=== PATIENT | male | born 1990 | race Hispanic/Latino ===

== ENCOUNTER → 2016-06-27 | Outpatient (REF) | payer OTHER | LOC: M SFHCLERA 13:09 | PROVIDERS: ATTEND Nurse Practitioner Family | DX: R30.0 Dysuria (principal) | CPT/HCPCS: 87086; G0463 ==

== ENCOUNTER 2016-06-28 14:28 | Emergency (ER) | payer OTHER ==
[2016-06-28] MEDS ORDERED: PROMETHAZINE INJ 25 MG/ML VIAL (J2550) As Ordered ONE (16:32)
--- NOTE | 2016-06-28 17:42 | EDDOCDS ---
Nurse's Notes [facility] Name: Derek Barker Age: 26 yrs Sex: Male : 1990 Arrival Date: 06/28/2016 Time: 14:28 Bed TR7 Private MD: Other - Complete Info On Cds Diagnosis: Nausea and vomiting-likely viral gastroenteritis;Diarrhea, unspecified;Dehydration Presentation: 06/28 14:38 Presenting complaint: Patient states: Pt presents with c/o vomiting and diarrhea dls general weakness and fever since Tuesday seen at clinic ordered meds but did not pick them up yet. Adult Sepsis Screening: The patient does not have new or worsening altered mentation. Patient's respiratory rate is less than 22. Systolic blood pressure is greater than 100. Patient has a qSOFA score of 0- Negative Sepsis Screen. Suicide/Homicide risk assessment- the patient denies having any suicidal and/or homicidal ideations and does not present with any other emotional, behavioral or mental health complaints. Status: The patient is an active duty sales and service consultant. Transition of care: patient was not received from another setting of care. 14:38 Acuity: BALA Level 3 dls 14:38 Method Of Arrival: Ambulance dls Triage Assessment: 14:40 General: Appears distressed, well developed, well nourished, Behavior is cooperative. dls Pain: Pain currently is 7 out of 10 on a pain scale. HIV screening NA for this visit Offered previously. Historical: - Allergies: SHELLFISH; - Home Meds: 1. none - PMHx: none; - PSHx: none; - Social history: Smoking status: Patient/guardian denies using No barriers to communication noted, The patient speaks fluent Irish. - Family history: Not pertinent. - : The pt / caregiver states he / she is not on anticoagulants. Home medication list is obtained from the patient. - Exposure Risk Screening:: None identified. Screenin:00 Screening information is obtained from the patient. Fall risk: No risks identified. mk4 Assistance ADL's: requires no assistance with activities of daily living. Abuse/DV Screen: The patient / caregiver reports he/she is: not in a situation that causes fear, pain or injury. Nutritional screening: No deficits noted. Advance Directives: Currently, there is no health care proxy. There is no active DNR order. There is no living will. There is no Power of Dramatic Critic. Advance directive information has not previously been placed in an [facility] medical record. Further advance directive information is declined. home support is adequate. Assessment: 16:00 General: Appears in no apparent distress, Behavior is cooperative. Neurological: Level mk4 of Consciousness is awake, alert. Respiratory: Airway is patent Respiratory effort is even, unlabored, Respiratory pattern is regular. GI: Abdomen is flat, non- distended Abd is soft and non tender Reports nausea, vomiting, since yesterday. GI:. 17:11 General: luis eduardo po apple juice. mk4 17:37 Reassessment: Patient states feeling better. Patient states symptoms have improved. mk4 General: Appears in no apparent distress, comfortable, Behavior is cooperative. General: no further vomiting. Vital Signs: 14:32 BP 114 / 61; Pulse 61; Resp 18 S; Temp 98.1(O); Pulse Ox 100% on R/A; Weight 92.99 kg gr2 (R); Height 5 ft. 9 in. (175.26 cm) (R); Pain 5/10; 17:28 BP 129 / 60; Pulse 60; Resp 18; Temp 97.6(O); Pulse Ox 99% on R/A; Pain 5/10; ct3 14:32 Body Mass Index 30.27 (92.99 kg, 175.26 cm) gr2 Vitals: 14:32 Log In Time: June 28, 2016 at 14:32. gr2 ED Course: 14:31 Patient visited by Radha Mar. gr2 14:31 Patient moved to Waiting gr2 14:32 Other - Complete Info On Cds is Private Physician. gr2 14:34 Patient visited by Radha Mar. gr2 14:34 Patient moved to Pre RCE gr2 14:40 Triage Initiated dls 16:00 The patient / caregiver is instructed regarding the plan of care and ED course. mk4 16:00 No IV's were initiated during this patient's visit. No procedures done that require 4 assistance. 16:14 Patient moved to Triage 3 kcs 16:15 Patient visited by Marcia Velez RN. mk4 16:19 [facility]. ar2 16:19 Tracie Ballard MD is Attending Physician. ar2 16:19 Patient visited by Norris Jordan PA-C. ar2 16:29 Patient moved to mk4 16:42 UA Sent. mk4 16:54 Patient visited by Marcia Velez RN. mk4 17:22 Deniz Gaspar [facility] is Referral Physician. ar2 17:29 Patient visited by Janell Lim PCA. ct3 17:33 Urine Culture Sent. ct3 17:37 Patient moved to [facility] mk4 Administered Medications: 16:42 Drug: Promethazine 25 mg [promethazine 25 mg/mL injection solution (1 mL)] Route: IM; mk4 Site: right gluteus; Order Results: Lab Order: UA; SPEC'M 06/28/16 16:38 Test: APPEARANCE, URINE; Value: CLEAR; Range: CLEAR; Status: F Test: COLOR, URINE; Value: YELLOW; Range: YELLOW; Status: F Test: PH,URINE; Value: 6.0; Range: 5.0-9.0; Units: UNITS; Status: F Test: SPECIFIC GRAVITY URINE AUTO; Value: 1.021; Range: 1.002-1.035; Status: F Test: PROTEIN, URINE AUTO; Value: NEGATIVE; Range: NEGATIVE; Units: mg/dL; Status: F Test: GLUCOSE, URINE (UA) AUTO; Value: NEGATIVE; Range: NEGATIVE; Units: mg/dL; Status: F Test: KETONE, URINE AUTO; Value: 2+; Range: NEGATIVE; Abnormal: Above high normal; Units: mg/dL; Status: F Test: UROBILINOGEN, URINE AUTO; Value: 4.0; Range: 0.0-2.0; Abnormal: Above high normal; Units: mg/dL; Status: F Test: BILIRUBIN, URINE AUTO; Value: NEGATIVE; Range: NEGATIVE; Status: F Test: NITRITE, URINE AUTO; Value: NEGATIVE; Range: NEGATIVE; Status: F Test: LEUKOCYTE ESTERASE, URINE AUTO; Value: NEGATIVE; Range: NEGATIVE; Status: F Test: BLOOD, URINE BLOOD; Value: 1+; Range: NEGATIVE; Abnormal: Above high normal; Status: F Test: WBC, URINE AUTO; Value: 1; Range: 0-3; Units: /HPF; Status: F Test: RBC, URINE AUTO; Value: 10; Range: 0-3; Abnormal: Above high normal; Units: /HPF; Status: F Test: BACTERIA, URINE AUTO; Value: 1+; Range: NEGATIVE; Abnormal: Above high normal; Status: F Test: SQUAMOUS EPITHELIAL CELL UR AU; Value: 0; Range: 0-6; Units: /HPF; Status: F Test: MUCUS, URINE; Value: SMALL; Range: NEGATIVE; Status: F Test: HYALINE CAST, URINE AUTO; Value: 0; Range: 0-1; Units: /LPF; Status: F Outcome: 17:23 Discharge ordered by Provider. ar2 17:37 Discharge Assessment: Patient awake, alert and oriented x 3. No cognitive and/or mk4 functional deficits noted. Patient verbalized understanding of disposition instructions. Patient awake and alert. Discharge Assessment: patient administered narcotics - no. The following High Risk Discharge criteria are identified: None. Condition: good Condition: stable. Instructed on proper follow up and filling of prescriptions previously prescribed for same illness. No special radiology studies were completed. Property sent home with patient. 17:41 Patient left the ED. mk4 Signatures: Ivelisse Hicks, RN RN Latasha Reddy RN RN Norris Hart, PA-Don PA-C ar2 Janell Lim, HELP DESK TECHNICIAN HELP DESK TECHNICIAN ct3 Radha Mar gr2 Marcia Velez RN RN mk4 MTDD
--- NOTE | 2016-06-28 17:42 | EDDOCDS ---
Physician Documentation [facility] Name: Derek Barker Age: 26 yrs Sex: Male : 1990 Arrival Date: 06/28/2016 Time: 14:28 Bed TR7 Private MD: Other - Complete Info On Cds Disposition: 06/28/16 17:23 Discharged to Home/Self Care. Impression: Nausea and vomiting - likely viral gastroenteritis, Diarrhea, unspecified, Dehydration. - Condition is Stable. - Discharge Instructions: Dehydration, Adult, Viral Gastroenteritis. - Medication Reconciliation, Local Pharmacy Hours form. - Follow up: Deniz Gaspar [facility]; When: 1 - 2 days; Reason: Recheck today's complaints. Follow up: Emergency Department; When: As needed; Reason: Fever > 102F, Worsening of conditions. - Problem is new. - Symptoms have improved. - Notes: take medications as previously prescribed. recommend rest at home for next 48 hrs Historical: - Allergies: SHELLFISH; - Home Meds: 1. none - PMHx: none; - PSHx: none; - Social history: Smoking status: Patient/guardian denies using No barriers to communication noted, The patient speaks fluent [place] Citizen. - Family history: Not pertinent. - : The pt / caregiver states he / she is not on anticoagulants. Home medication list is obtained from the patient. - Exposure Risk Screening:: None identified. Vital Signs: 06/28 14:32 BP 114 / 61; Pulse 61; Resp 18 S; Temp 98.1(O); Pulse Ox 100% on R/A; Weight 92.99 kg / gr2 205.01 lbs (R); Height 5 ft. 9 in. (175.26 cm) (R); Pain 5/10; 17:28 BP 129 / 60; Pulse 60; Resp 18; Temp 97.6(O); Pulse Ox 99% on R/A; Pain 5/10; ct3 14:32 Body Mass Index 30.27 (92.99 kg, 175.26 cm) gr2 MDM: 16:24 Promethazine 25 mg IM once ordered. ar2 16:24 Fluid Challenge ordered. ar2 16:25 UA Ordered. EDMS 17:21 UA Reviewed. ar2 17:22 Urine Culture Ordered. EDMS 17:31 Financial registration complete. gjb Administered Medications: 16:42 Drug: Promethazine 25 mg [promethazine 25 mg/mL injection solution (1 mL)] Route: IM; mk4 Site: right gluteus; Signatures: Dispatcher [employer] Latasha Salas, RN RN dls Norris Jordan PA-C PABettina lucio2 Marcia Velez RN RN mk4 Alejandra Cesar MTDLalita
--- NOTE | 2016-06-30 18:42 | EDDOCDS ---
Nurse's Notes [facility] Name: Derek Barker Age: 26 yrs Sex: Male : 1990 Arrival Date: 06/28/2016 Time: 14:28 Bed TR7 Private MD: Other - Complete Info On Cds Diagnosis: Nausea and vomiting-likely viral gastroenteritis;Diarrhea, unspecified;Dehydration Presentation: 06/28 14:38 Presenting complaint: Patient states: Pt presents with c/o vomiting and diarrhea dls general weakness and fever since Tuesday seen at clinic ordered meds but did not pick them up yet. Adult Sepsis Screening: The patient does not have new or worsening altered mentation. Patient's respiratory rate is less than 22. Systolic blood pressure is greater than 100. Patient has a qSOFA score of 0- Negative Sepsis Screen. Suicide/Homicide risk assessment- the patient denies having any suicidal and/or homicidal ideations and does not present with any other emotional, behavioral or mental health complaints. Status: The patient is an active duty sales & service associate. Transition of care: patient was not received from another setting of care. 14:38 Acuity: BALA Level 3 dls 14:38 Method Of Arrival: Ambulance dls Triage Assessment: 14:40 General: Appears distressed, well developed, well nourished, Behavior is cooperative. dls Pain: Pain currently is 7 out of 10 on a pain scale. HIV screening NA for this visit Offered previously. Historical: - Allergies: SHELLFISH; - Home Meds: 1. none - PMHx: none; - PSHx: none; - Social history: Smoking status: Patient/guardian denies using No barriers to communication noted, The patient speaks fluent Serbian. - Family history: Not pertinent. - : The pt / caregiver states he / she is not on anticoagulants. Home medication list is obtained from the patient. - Exposure Risk Screening:: None identified. Screenin:00 Screening information is obtained from the patient. Fall risk: No risks identified. mk4 Assistance ADL's: requires no assistance with activities of daily living. Abuse/DV Screen: The patient / caregiver reports he/she is: not in a situation that causes fear, pain or injury. Nutritional screening: No deficits noted. Advance Directives: Currently, there is no health care proxy. There is no active DNR order. There is no living will. There is no Power of Electrician Constructor Supervisor. Advance directive information has not previously been placed in an [facility] medical record. Further advance directive information is declined. home support is adequate. Assessment: 16:00 General: Appears in no apparent distress, Behavior is cooperative. Neurological: Level mk4 of Consciousness is awake, alert. Respiratory: Airway is patent Respiratory effort is even, unlabored, Respiratory pattern is regular. GI: Abdomen is flat, non- distended Abd is soft and non tender Reports nausea, vomiting, since yesterday. GI:. 17:11 General: luis eduardo po apple juice. mk4 17:37 Reassessment: Patient states feeling better. Patient states symptoms have improved. mk4 General: Appears in no apparent distress, comfortable, Behavior is cooperative. General: no further vomiting. Vital Signs: 14:32 BP 114 / 61; Pulse 61; Resp 18 S; Temp 98.1(O); Pulse Ox 100% on R/A; Weight 92.99 kg gr2 (R); Height 5 ft. 9 in. (175.26 cm) (R); Pain 5/10; 17:28 BP 129 / 60; Pulse 60; Resp 18; Temp 97.6(O); Pulse Ox 99% on R/A; Pain 5/10; ct3 14:32 Body Mass Index 30.27 (92.99 kg, 175.26 cm) gr2 Vitals: 14:32 Log In Time: June 28, 2016 at 14:32. gr2 ED Course: 14:31 Patient visited by Radha Mar. gr2 14:31 Patient moved to Waiting gr2 14:32 Other - Complete Info On Cds is Private Physician. gr2 14:34 Patient visited by Radha Mar. gr2 14:34 Patient moved to Pre RCE gr2 14:40 Triage Initiated dls 16:00 The patient / caregiver is instructed regarding the plan of care and ED course. mk4 16:00 No IV's were initiated during this patient's visit. No procedures done that require 4 assistance. 16:14 Patient moved to Triage 3 kcs 16:15 Patient visited by Marcia Velez RN. mk4 16:19 Norris [facility]. ar2 16:19 Tracie Ballard MD is Attending Physician. ar2 16:19 Patient visited by Norris Jordan PA-C. ar2 16:29 Patient moved to mk4 16:42 UA Sent. mk4 16:54 Patient visited by Marcia Velez RN. mk4 17:22 Deniz Gaspar [facility] is Referral Physician. ar2 17:29 Patient visited by Janell Lim PCA. ct3 17:33 Urine Culture Sent. ct3 17:37 Patient moved to 7 mk4 18:18 [facility] Payment Agreement was scanned into [employer] and attached to record. gjb 06/29 11:42 T-Sheet-- Draft Copy was scanned into [employer] and attached to record. gb Administered Medications: 06/28 16:42 Drug: Promethazine 25 mg [promethazine 25 mg/mL injection solution (1 mL)] Route: IM; [facility] Site: right gluteus; Order Results: Lab Order: UA; SPEC'M 06/28/16 16:38 Test: APPEARANCE, URINE; Value: CLEAR; Range: CLEAR; Status: F Test: COLOR, URINE; Value: YELLOW; Range: YELLOW; Status: F Test: PH,URINE; Value: 6.0; Range: 5.0-9.0; Units: UNITS; Status: F Test: SPECIFIC GRAVITY URINE AUTO; Value: 1.021; Range: 1.002-1.035; Status: F Test: PROTEIN, URINE AUTO; Value: NEGATIVE; Range: NEGATIVE; Units: mg/dL; Status: F Test: GLUCOSE, URINE (UA) AUTO; Value: NEGATIVE; Range: NEGATIVE; Units: mg/dL; Status: F Test: KETONE, URINE AUTO; Value: 2+; Range: NEGATIVE; Abnormal: Above high normal; Units: mg/dL; Status: F Test: UROBILINOGEN, URINE AUTO; Value: 4.0; Range: 0.0-2.0; Abnormal: Above high normal; Units: mg/dL; Status: F Test: BILIRUBIN, URINE AUTO; Value: NEGATIVE; Range: NEGATIVE; Status: F Test: NITRITE, URINE AUTO; Value: NEGATIVE; Range: NEGATIVE; Status: F Test: LEUKOCYTE ESTERASE, URINE AUTO; Value: NEGATIVE; Range: NEGATIVE; Status: F Test: BLOOD, URINE BLOOD; Value: 1+; Range: NEGATIVE; Abnormal: Above high normal; Status: F Test: WBC, URINE AUTO; Value: 1; Range: 0-3; Units: /HPF; Status: F Test: RBC, URINE AUTO; Value: 10; Range: 0-3; Abnormal: Above high normal; Units: /HPF; Status: F Test: BACTERIA, URINE AUTO; Value: 1+; Range: NEGATIVE; Abnormal: Above high normal; Status: F Test: SQUAMOUS EPITHELIAL CELL UR AU; Value: 0; Range: 0-6; Units: /HPF; Status: F Test: MUCUS, URINE; Value: SMALL; Range: NEGATIVE; Status: F Test: HYALINE CAST, URINE AUTO; Value: 0; Range: 0-1; Units: /LPF; Status: F Lab Order: Urine Culture; SPEC'M 06/28/16 17:32 Test: URINE CULTURE; Value: <EXTERNAL COMMENT eCWMed> FULL REPORT IN LAB NOTES (eCW and Medent).; Status: F Test: URINE CULTURE; Value: URINE CULTURE RESULT NO GROWTH; Status: F Outcome: 17:23 Discharge ordered by Provider. ar2 17:37 Discharge Assessment: Patient awake, alert and oriented x 3. No cognitive and/or mk4 functional deficits noted. Patient verbalized understanding of disposition instructions. Patient awake and alert. Discharge Assessment: patient administered narcotics - no. The following High Risk Discharge criteria are identified: None. Condition: good Condition: stable. Instructed on proper follow up and filling of prescriptions previously prescribed for same illness. No special radiology studies were completed. Property sent home with patient. 17:41 Patient left the ED. [email or web address] Signatures: Ivelisse Hicks RN RN kcs Scott, Debra, RN RN dls Barnhardt, Gloria, Roc Reg Norris Bland, PA-C PA-C ar2 Janell Lim, PULL OUT OPERATOR PULL OUT OPERATOR ct3 Radha Mar gr2 Marcia Velez RN RN Alejandra Simon Chart Complete MTDD
--- NOTE | 2016-06-30 18:42 | EDDOCDS ---
Physician Documentation [facility] Name: Derek Barker Age: 26 yrs Sex: Male : 1990 Arrival Date: 06/28/2016 Time: 14:28 Bed TR7 Private MD: Other - Complete Info On Cds Disposition: 06/28/16 17:23 Discharged to Home/Self Care. Impression: Nausea and vomiting - likely viral gastroenteritis, Diarrhea, unspecified, Dehydration. - Condition is Stable. - Discharge Instructions: Dehydration, Adult, Viral Gastroenteritis. - Medication Reconciliation, Local Pharmacy Hours form. - Follow up: Deniz Gaspar [facility]; When: 1 - 2 days; Reason: Recheck today's complaints. Follow up: Emergency Department; When: As needed; Reason: Fever > 102F, Worsening of conditions. - Problem is new. - Symptoms have improved. - Notes: take medications as previously prescribed. recommend rest at home for next 48 hrs Historical: - Allergies: SHELLFISH; - Home Meds: 1. none - PMHx: none; - PSHx: none; - Social history: Smoking status: Patient/guardian denies using No barriers to communication noted, The patient speaks fluent Finnish. - Family history: Not pertinent. - : The pt / caregiver states he / she is not on anticoagulants. Home medication list is obtained from the patient. - Exposure Risk Screening:: None identified. Vital Signs: 06/28 14:32 BP 114 / 61; Pulse 61; Resp 18 S; Temp 98.1(O); Pulse Ox 100% on R/A; Weight 92.99 kg / gr2 205.01 lbs (R); Height 5 ft. 9 in. (175.26 cm) (R); Pain 5/10; 17:28 BP 129 / 60; Pulse 60; Resp 18; Temp 97.6(O); Pulse Ox 99% on R/A; Pain 5/10; ct3 14:32 Body Mass Index 30.27 (92.99 kg, 175.26 cm) gr2 MDM: 16:24 Promethazine 25 mg IM once ordered. ar2 16:24 Fluid Challenge ordered. ar2 16:25 UA Ordered. EDMS 17:21 UA Reviewed. ar2 17:22 Urine Culture Ordered. EDMS 17:31 Financial registration complete. gjb 18:18 [facility] Payment Agreement was scanned into [employer] and attached to record. gjb 06/29 11:42 T-Sheet-- Draft Copy was scanned into [employer] and attached to record. gb Administered Medications: 06/28 16:42 Drug: Promethazine 25 mg [promethazine 25 mg/mL injection solution (1 mL)] Route: IM; mk4 Site: right gluteus; Signatures: Dispatcher Med[employer] EDMS Latasha Jaquez, RN RN dls Laura Borjas, Reg Reg Norris Bland, PA-C PA-C Marcia Hogue RN RN [email or web address] Alejandra Cesar The chart was reviewed and I authenticate all verbal orders and agree with the evaluation and treatment provided.Attachments: 18:18 [facility] Payment Agreement [facility] 06/29 11:42 T-Sheet-- Draft Copy gb Chart Complete MTDD
--- NOTE | 2016-06-30 18:42 | EDDOCDS ---
Physician Documentation [facility] Name: Derek Barker Age: 26 yrs Sex: Male : 1990 Arrival Date: 06/28/2016 Time: 14:28 Bed TR7 Private MD: Other - Complete Info On Cds Disposition: 06/28/16 17:23 Discharged to Home/Self Care. Impression: Nausea and vomiting - likely viral gastroenteritis, Diarrhea, unspecified, Dehydration. - Condition is Stable. - Discharge Instructions: Dehydration, Adult, Viral Gastroenteritis. - Medication Reconciliation, Local Pharmacy Hours form. - Follow up: Deniz Gaspar [facility]; When: 1 - 2 days; Reason: Recheck today's complaints. Follow up: Emergency Department; When: As needed; Reason: Fever > 102F, Worsening of conditions. - Problem is new. - Symptoms have improved. - Notes: take medications as previously prescribed. recommend rest at home for next 48 hrs Historical: - Allergies: SHELLFISH; - Home Meds: 1. none - PMHx: none; - PSHx: none; - Social history: Smoking status: Patient/guardian denies using No barriers to communication noted, The patient speaks fluent Portuguese. - Family history: Not pertinent. - : The pt / caregiver states he / she is not on anticoagulants. Home medication list is obtained from the patient. - Exposure Risk Screening:: None identified. Vital Signs: 06/28 14:32 BP 114 / 61; Pulse 61; Resp 18 S; Temp 98.1(O); Pulse Ox 100% on R/A; Weight 92.99 kg / gr2 205.01 lbs (R); Height 5 ft. 9 in. (175.26 cm) (R); Pain 5/10; 17:28 BP 129 / 60; Pulse 60; Resp 18; Temp 97.6(O); Pulse Ox 99% on R/A; Pain 5/10; ct3 14:32 Body Mass Index 30.27 (92.99 kg, 175.26 cm) gr2 MDM: 16:24 Promethazine 25 mg IM once ordered. ar2 16:24 Fluid Challenge ordered. ar2 16:25 UA Ordered. EDMS 17:21 UA Reviewed. ar2 17:22 Urine Culture Ordered. EDMS 17:31 Financial registration complete. gjb 18:18 [facility] Payment Agreement was scanned into [employer] and attached to record. gjb 06/29 11:42 T-Sheet-- Draft Copy was scanned into [employer] and attached to record. gb Administered Medications: 06/28 16:42 Drug: Promethazine 25 mg [promethazine 25 mg/mL injection solution (1 mL)] Route: IM; mk4 Site: right gluteus; Signatures: Dispatcher [employer] EDMS Latasha Jaquez, RN RN dls Laura Borjas, Reg Reg Norris Bland, PA-C PA-C Marcia Hogue RN RN [email or web address] Alejandra Cesar The chart was reviewed and I authenticate all verbal orders and agree with the evaluation and treatment provided.Attachments: 18:18 [facility] Payment Agreement [facility] 06/29 11:42 T-Sheet-- Draft Copy gb Chart Complete MTDD
== END 2016-06-28 17:41 | disposition home or self-care (01) ==
LOC: M ED 14:28
DX: R11.2 Nausea with vomiting, unspecified (principal); R19.7 Diarrhea, unspecified; E86.0 Dehydration; Z91.013 Allergy to seafood

== ENCOUNTER → 2017-05-02 | Outpatient (CLI) | payer OTHER ==
--- NOTE | 2017-05-10 18:16 | CPSTRESS ---
DATE OF PROCEDURE: 05/02/2017 INTERPRETATION: This was a symptom-limited CPX done on the treadmill. Unfortunately, there was too much artifact to interpret the majority of the data. However, it can be stated that this is a normal test based on the amount of exercise done on the modified Mukul protocol. For that same reason, it can be stated that he is in excellent physical condition. There is no evidence of ventilatory limitation. While the EKG was uninterpretable, there were no changes noted in the composite complex. Normal auscultation at the end of exercise. IMPRESSION: Normal cardiopulmonary exercise test with excellent level of fitness.
== END ==
LOC: M CARPUL 04-11 07:58
PROVIDERS: ATTEND Internal Medicine Pulmonary Disease
DX: R06.00 Dyspnea, unspecified (principal)

== ENCOUNTER 2018-07-14 19:56 | Emergency (ER) | payer OTHER ==
[~2018-07-14] VITALS: Ht 175.3 cm; Wt 100.0 kg
[~2018-07-14 19:56] MED LIST: ADV500INH INH; PROAAER10 INH
[2018-07-14] MEDS ORDERED: KETOROLAC 60 MG/2 ML VIAL (J1885) IM ONE (20:45)
[2018-07-14] MEDS ORDERED: ONDANSETRON 4 MG ORAL DISINTEGRATING TAB (Q0162 PER 1MG) PO ONE (20:45)
[2018-07-14] MEDS ORDERED: ZOFR4TAB16 PO (21:41)
[2018-07-14 21:46] VITALS: BP 115/61
--- NOTE | 2018-07-14 21:46 | REP ---
Clinical: Trauma/fall with right hip pain and ecchymosis. Technique: Frontal view of the pelvis with neutral and frog lateral views of the right hip. Findings: Osseous structures and joint spaces are intact and normal. Hip joints appear symmetric on frontal pelvic radiograph. No acute fracture dislocation. No evidence for healed injury. No significant degenerative or congenital abnormalities are appreciated. Surrounding soft tissues are unremarkable. Impression: Normal pelvis and right hip series. Electronically Signed by Storm Rosas MD 07/14/2018 09:37 P
== END 2018-07-14 21:53 | disposition home or self-care (01) ==
LOC: M ED 19:56
DX: R11.0 Nausea (principal); S70.01XA Contusion of right hip, initial encounter; W10.8XXA Fall (on) (from) other stairs and steps, initial encounter; Y92.89 Other specified places as the place of occurrence of the external cause; Y99.0 Civilian activity done for income or pay; Z91.013 Allergy to seafood
CPT/HCPCS: 73502; 96372; 99283; J1885; Q0162

== ENCOUNTER 2018-07-17 11:12 | Emergency (ER) | payer OTHER ==
[~2018-07-17] VITALS: Ht 175.3 cm; Wt 102.3 kg
[~2018-07-17 11:12] MED LIST changes: +ZOFR4TAB16 PO
[2018-07-17] MEDS ORDERED: METOCLOPRAMIDE INJ 10MG/2ML VIAL (J2765) IV ONE (12:00)
[2018-07-17] MEDS ORDERED: NS 1,000 ML IV ONE (12:00)
[2018-07-17 12:22] LABS: BASO % 0.4 % (0.0-1.0); EOS # 0.1 10^3/uL (0.0-0.50); EOS % 1.1 % (0.0-3.0); HEMATOCRIT 49.3 % (42.0-52.0); HEMOGLOBIN 16.1 g/dl (13.5-17.5); LYMPH # 1.3 10^3/uL (1.5-6.5); LYMPH % 27.4 % (24.0-44.0); MEAN CORPUSCULAR HEMOGLOBIN 29.4 pg (27.0-33.0); MEAN CORPUSCULAR HGB CONC 32.7 g/dl (32.0-36.5); MONO # 0.5 10^3/uL (0.0-0.8); MONO % 10.4 % (0.0-5.0); NEUTROPHILS # 2.8 10^3/uL (1.8-7.7); NEUTROPHILS % 60.3 % (36.0-66.0); PLATELET COUNT, AUTOMATED 193 10^3/uL (150-450); RED BLOOD COUNT 5.48 10^6/uL (4.30-6.10); WHITE BLOOD COUNT 4.7 10^3/uL (4.0-10.0)
[2018-07-17 12:34] LABS: ALBUMIN 4.3 GM/DL (3.2-5.2); ALT/SGPT 79 U/L (12-78); AMYLASE 33 U/L (25-115); BILIRUBIN,DIRECT < 0.1 MG/DL (0.0-0.2); BILIRUBIN,TOTAL 0.3 MG/DL (0.2-1.0); BLOOD UREA NITROGEN 14 MG/DL (7-18); CALCIUM LEVEL 8.6 MG/DL (8.5-10.1); CARBON DIOXIDE LEVEL 28 MEQ/L (21-32); CHLORIDE LEVEL 107 MEQ/L (98-107); CREATININE FOR GFR 1.01 MG/DL (0.70-1.30); GLOMERULAR FILTRATION RATE > 60.0 (>60); GLUCOSE, FASTING 82 MG/DL (70-100); LIPASE 51 U/L (73-393); POTASSIUM SERUM 4.1 MEQ/L (3.5-5.1); SODIUM LEVEL 142 MEQ/L (136-145); TOTAL PROTEIN 7.9 GM/DL (6.4-8.2)
[2018-07-17] MEDS ORDERED: DICY10CA13 PO (13:21)
[2018-07-17] MEDS ORDERED: PROM12.528 PO (13:21)
[2018-07-17 13:31] VITALS: BP 119/66
--- NOTE | 2018-07-17 13:36 | REP ---
RIGHT UPPER QUADRANT ULTRASOUND: Real-time sonographic evaluation of the right upper quadrant is performed. The gallbladder demonstrates no evidence of intraluminal sludge or calculi, wall thickening or pericholecystic fluid. There is no intrahepatic or extrahepatic biliary dilatation, common bile duct measuring 3 mm. Liver demonstrates a possible diffuse fatty infiltration with no definite mass. Length is 16.7 cm at the upper limits of normal. Pancreas is grossly unremarkable but not optimally seen due to overlying bowel gas. Right kidney demonstrates no hydronephrosis or nephrolithiasis with normal size 11.5 cm in length. No free fluid is seen. IMPRESSION: No gallstones, biliary dilatation or free fluid. Possible mild fatty infiltration of the liver. Electronically Signed by Harris Lau MD 07/17/2018 05:42 P
== END 2018-07-17 13:34 | disposition home or self-care (01) ==
LOC: M ED 11:12
DX: R11.2 Nausea with vomiting, unspecified (principal); R19.7 Diarrhea, unspecified; J45.909 Unspecified asthma, uncomplicated; J34.2 Deviated nasal septum; Z91.013 Allergy to seafood; Z79.899 Other long term (current) drug therapy
CPT/HCPCS: 76705; 80048; 80076; 81001; 82150; 83690; 85025; 96374; 99284; J2765

== ENCOUNTER 2018-07-18 23:56 | Emergency (ER) | payer OTHER ==
[~2018-07-18] VITALS: Ht 175.3 cm; Wt 102.0 kg
[~2018-07-18 23:56] MED LIST changes: +DICY10CA13 PO; +PROM12.528 PO
[2018-07-19 01:27] LABS: BASO % 0.3 % (0.0-1.0); EOS # 0.1 10^3/uL (0.0-0.50); EOS % 1.4 % (0.0-3.0); HEMATOCRIT 45.1 % (42.0-52.0); HEMOGLOBIN 14.9 g/dl (13.5-17.5); LYMPH # 1.3 10^3/uL (1.5-6.5); LYMPH % 21.1 % (24.0-44.0); MEAN CORPUSCULAR HEMOGLOBIN 29.3 pg (27.0-33.0); MEAN CORPUSCULAR VOLUME 88.6 fl (80.0-96.0); MONO # 0.6 10^3/uL (0.0-0.8); MONO % 9.6 % (0.0-5.0); NEUTROPHILS # 4.2 10^3/uL (1.8-7.7); NEUTROPHILS % 67.4 % (36.0-66.0); PLATELET COUNT, AUTOMATED 164 10^3/uL (150-450); RED BLOOD COUNT 5.09 10^6/uL (4.30-6.10); WHITE BLOOD COUNT 6.3 10^3/uL (4.0-10.0)
[2018-07-19 01:36] LABS: ALT/SGPT 73 U/L (12-78); BILIRUBIN,TOTAL 0.4 MG/DL (0.2-1.0); BLOOD UREA NITROGEN 15 MG/DL (7-18); CALCIUM LEVEL 8.4 MG/DL (8.5-10.1); CARBON DIOXIDE LEVEL 23 MEQ/L (21-32); CHLORIDE LEVEL 109 MEQ/L (98-107); CREATININE FOR GFR 0.93 MG/DL (0.70-1.30); GLOMERULAR FILTRATION RATE > 60.0 (>60); GLUCOSE, FASTING 90 MG/DL (70-100); POTASSIUM SERUM 3.9 MEQ/L (3.5-5.1); SODIUM LEVEL 141 MEQ/L (136-145); TOTAL PROTEIN 7.8 GM/DL (6.4-8.2)
[2018-07-19] MEDS ORDERED: ISOVUE-370 76% 100ML VIAL (Q9967) As Ordered ONE (01:51)
[2018-07-19] MEDS ORDERED: NS 1,000 ML IV ONE (02:00)
--- NOTE | 2018-07-19 03:04 | REPVR ---
EXAM: CT Abdomen and Pelvis With Contrast EXAM DATE/TIME: 07/19/2018 1:47 AM CLINICAL HISTORY: 28 years old, male; Pain; Abdominal pain; Generalized; Additional info: Abd pain, n/v/d TECHNIQUE: Axial computed tomography images of the abdomen and pelvis with intravenous contrast. All CT scans at this facility use at least one of these dose optimization techniques: automated exposure control; mA and/or kV adjustment per patient size (includes targeted exams where dose is matched to clinical indication); or iterative reconstruction. Coronal and sagittal reformatted images were created and reviewed. CONTRAST: Contrast Material: 100 ml of iso; Contrast Route: ac COMPARISON: CR Hip,AP,LAT to include Pelvis 07/14/2018 8:49 PM FINDINGS: Lower thorax: No acute findings. ABDOMEN: Liver: Normal. No mass. Gallbladder and bile ducts: Normal. No calcified stones. No ductal dilation. Pancreas: Normal. No ductal dilation. Spleen: Normal. No splenomegaly. Adrenals: Normal. No mass. Kidneys and ureters: Normal. No hydronephrosis. Stomach and bowel: Nondistended fluid-filled small bowel with some scattered air-fluid levels which may reflect minimal ileus or possibly enteritis. Appendix: A normal appendix is seen. PELVIS: Bladder: Unremarkable as visualized. Reproductive: Unremarkable as visualized. ABDOMEN and PELVIS: Intraperitoneal space: Normal. No free air. No significant fluid collection. Bones/joints: No acute fracture. No dislocation. Soft tissues: Unremarkable. Vasculature: Normal. No abdominal aortic aneurysm. Lymph nodes: There are borderline central mesenteric nodes which are nonspecific and somewhat greater than expected for age. IMPRESSION: 1. Borderline central mesenteric nodes which are somewhat greater than expected for age and may reflect mesenteric adenitis. 2. Nondistended fluid-filled segments of small bowel which may reflect ileus or possibly enteritis. 3. Otherwise negative CT abdomen/pelvis. Electronically signed by: Juan A Rizo On 07/19/2018 03:03:51 AM
[2018-07-19 04:31] VITALS: BP 113/59
== END 2018-07-19 04:36 | disposition home or self-care (01) ==
LOC: M ED 23:56
DX: I88.0 Nonspecific mesenteric lymphadenitis (principal); Z91.013 Allergy to seafood
CPT/HCPCS: 74177; 80053; 85025; 99284; Q9967